=== PATIENT | female | born 1950 | race Caucasian/White ===

== ENCOUNTER → 2017-04-28 | Outpatient (CLI) | payer MEDICARE ==
[2017-04-28 11:14] LABS: Basophils % (A) 1 %; CH 32.4; CHCM 33.2; Eosinophils # (A) 0.1 k/uL (0-0.7); Eosinophils % (A) 2 %; HCT 44.3 % (34.0-46.0); HDW 2.17; HGB 15.1 gm/dL (11.4-16.0); Luc # (Auto) 0.09; Luc % (Auto) 2; Lymphocytes % (A) 32 %; MCH 33.5 pg (25.0-35.0); MCHC 34.2 g/dL (31.0-37.0); Mean Platelet Volume 9.1; Monocytes # (A) 0.3 k/uL (0-1.0); Monocytes % (A) 5 %; Neutrophils # (A) 3.7 k/uL (1.3-7.7); Neutrophils % (A) 59 %; RBC 4.52 m/uL (3.80-5.40); RDW 12.9 % (11.5-15.5); WBC 6.2 k/uL (3.8-10.6); WBC (Perox) 6.18
[2017-04-28 16:32] LABS: ANA w/Reflex to Titer NEGATIVE (NEGATIVE)
== END | disposition home or self-care (01) ==
LOC: LABWHC1 10:05
PROVIDERS: ATTEND Nurse Practitioner Family
DX: K14.6 Glossodynia (principal); G50.9 Disorder of trigeminal nerve, unspecified
CPT/HCPCS: 36415; 82306; 82607; 82746; 84165; 84425; 84443; 84630; 85025; 86038; 86235; 86334

== ENCOUNTER 2022-07-01 15:17 | Emergency (ER) | payer MEDICARE ==
[2022-07-01 15:38] VITALS: BP 135/78; PULSE 107; RESP 20; TEMP 97.8
--- NOTE | 2022-07-01 16:14 | XR ---
EXAMINATION TYPE: XR abdomen 2V DATE OF EXAM: 07/01/2022 4:02 PM INDICATION: Patient age:Female; 72 years old; Reason for study: abdominal pain/constipation; COMPARISON: None. TECHNIQUE: Two views of the abdomen were obtained. FINDINGS: The bowel gas pattern is nonspecific without dilated loops of small or large bowel. There i s no evidence for organomegaly or pneumoperitoneum. The osseous structures are intact. No abnormal calcifications are present. Fecal material and gas are demonstrated throughout the colon and rectum. Multilevel disc degeneration changes throughout the spine. IMPRESSION: Nonspecific bowel gas pattern without radiographic evidence for acute process.
== END 2022-07-01 18:21 | disposition left against medical advice (07) ==
LOC: EC 15:17
DX: Z53.21 Procedure and treatment not carried out due to patient leaving prior to being seen by health care provider (principal)
CPT/HCPCS: 74019; 99499

== ENCOUNTER 2022-07-02 09:27 | Emergency (ER) | payer MEDICARE ==
[2022-07-02 09:46] VITALS: RESP 18; TEMP 97.7
[2022-07-02] MEDS ORDERED: HYDROcodone/APAP 10-325MG 1 EACH TAB PO ONE (12:23)
--- NOTE | 2022-07-02 12:59 | ED ---
General Adult HPI - General Chief complaint: Back Pain/Injury Stated complaint: Abd & back pain Time Seen by Provider: 07/02/22 10:57 Source: patient, RN notes reviewed Mode of arrival: ambulatory Limitations: no limitations - History of Present Illness Initial comments: 72-year-old female presents to the emergency department for evaluation of ongoing back pain 5-6 weeks. Patient states she thinks this discomfort is associated with an episode in which she bent over to reach first an object off the floor discomfort upon straightening. States she has been on Courtenay and has had some relief of discomfort. Reports she also is dealing with constipation and is concerned about a bowel obstruction. Reports loose stool as she has been taking laxative and fiber supplements. No nausea or vomiting. Reports decreased appetite. Denies any foot drop, saddle anesthesia, radicular symptoms, abdominal pain, urinary discomfort, or loss of bowel or bladder control. - Related Data Home Medications Medication Instructions Recorded Confirmed Gabapentin 300 mg PO TID 07/02/22 07/02/22 Zolpidem [Ambien] 10 mg PO HS PRN 07/02/22 07/02/22 Allergies Allergy/AdvReac Type Severity Reaction Status Date / Time erythromycin base Allergy Rash/Hives Verified 07/02/22 12:34 [Erythromycin Base] Penicillins Allergy Rash/Hives Verified 07/02/22 12:34 Review of Systems ROS Statement: Those systems with pertinent positive or pertinent negative responses have been documented in the HPI. ROS Other: All systems not noted in ROS Statement are negative. Past Medical History Past Medical History: Cancer, COPD, GERD/Reflux, Osteoarthritis (OA) Additional Past Medical History / Comment(s): hx cervical cancer, bulging disc in neck, chronic low back & left hip pain History of Any Multi-Drug Resistant Organisms: None Reported Past Surgical History: Hysterectomy Additional Past Surgical History / Comment(s): excision lesion in vaginal area Past Anesthesia/Blood Transfusion Reactions: No Reported Reaction Past Psychological History: Anxiety Smoking Status: Current every day smoker Past Alcohol Use History: Occasional Past Drug Use History: None Reported General Exam Limitations: no limitations (Well-developed, poorly nourished female in no acute distress. Initial temperature 97.7, pulse 94, respirations 18, blood pressure 146/83, pulse ox 97% on room air.) General appearance: alert, in no apparent distress ENT exam: Present: normal oropharynx Respiratory exam: Present: normal lung sounds bilaterally. Absent: respiratory distress, wheezes, rales, rhonchi, stridor Cardiovascular Exam: Present: regular rate, normal rhythm, normal heart sounds. Absent: systolic murmur, diastolic murmur, rubs, gallop, clicks GI/Abdominal exam: Present: soft, normal bowel sounds. Absent: distended, tenderness, guarding, rebound, rigid Back exam: Present: CVA tenderness (R). Absent: CVA tenderness (L), muscle spasm, paraspinal tenderness, vertebral tenderness, rash noted Expanded Back exam: Absent: saddle anesthesia Back exam: Negative Straight Leg Raising: Left, Right Neurological exam: Present: alert, oriented X3, normal gait Psychiatric exam: Present: normal affect, normal mood Skin exam: Present: warm, dry, intact, normal color. Absent: rash Course Vital Signs 07/02/22 07/02/22 09:43 15:31 Temperature 97.7 F Pulse Rate 94 78 Respiratory 18 18 Rate Blood Pressure 146/83 144/78 O2 Sat by Pulse 97 97 Oximetry - Reevaluation(s) Reevaluation #1: 07/02/22 14:30 Upon reassessment, patient reports improvement in discomfort level. She is asked to provide an additional urine specimen as there was insufficient quantity and the previous one. Patient is well-appearing and is able to move freely. Did discuss results of KUB x-ray that was obtained yesterday. Provided there is no concerning findings and her urinalysis, she will be instructed to utilize a stool softener and to follow up with her PCP for a recheck. Medical Decision Making - Medical Decision Making This is a pleasant 72-year-old female with a past medical history of chronic back pain, COPD, and cancer who presents to the emergency Department with complaints of thoracic back discomfort and constipation. Upon exam, patient is well-appearing and in no acute distress. She is able to move freely and ambulate without difficulty. No foot drop, saddle anesthesia, or loss of bowel or bladder control. Patient was given a Courtenay for pain. This was obtained showing 3+ ketones. She is encouraged to increase hydration and add a stool softener in place of a laxative. Encouraged to follow up with her PCP for a recheck next week and to keep her scheduled follow-up appointment for additional testing. Return parameters discussed in detail. Patient verbalizes understanding and agrees with this plan. Attending: Norbert. - Lab Data Lab Results 07/02/22 Range/Units 14:20 Urine Color Yellow Urine Appearance Clear (Clear) Urine pH 6.0 (5.0-8.0) Ur Specific [place] 1.034 (1.001-1.035) Urine Protein Trace H (Negative) Urine Glucose (UA) Negative (Negative) Urine Ketones 3+ H (Negative) Urine Blood Trace H (Negative) Urine Nitrite Negative (Negative) Urine Bilirubin Negative (Negative) Urine Urobilinogen <2.0 (<2.0) mg/dL Ur Leukocyte Esterase Negative (Negative) Urine RBC 6 H (0-5) /hpf Urine WBC 1 (0-5) /hpf Ur Squamous Epith Cells 1 (0-4) /hpf Urine Bacteria Rare H (None) /hpf Hyaline Casts 3 H (0-2) /lpf Urine Mucus Few H (None) /hpf Disposition Clinical Impression: Back pain of thoracolumbar region, Constipation Disposition: HOME SELF-CARE Condition: Stable Instructions (If sedation given, give patient instructions): Constipation (ED), Back Pain (ED) Additional Instructions: Continue to take your home medications as prescribed. Add a stool softener (Colace, Docusate Sodium) daily for 3-5 days. Utilize a fiber supplement as well. Maintain mobility with frequent ambulation and gentle stretching. Follow up with DR. Castellanos as scheduled. Return to the emergency department with any new, worsening, or concerning symptoms. Is patient prescribed a controlled substance at d/c from ED?: No Referrals: Nigel Castellanos DO [Primary Care Provider] - 1-2 days Time of Disposition: 15:25
[2022-07-02 14:41] LABS: Appearance,Urine Clear (Clear); Bacteria,Urine Rare /hpf; Bilirubin,Urine Negative (Negative); Blood,Urine Trace (Negative); Color,Urine Yellow; Glucose,Urine (UA) Negative (Negative); Hyaline Casts,Urine 3 /lpf (0-2); Ketones,Urine 3+ (Negative); Leukocyte Esterase,Urine Negative (Negative); Mucus,Urine Few /hpf; Nitrite,Urine Negative (Negative); Protein,Urine Trace (Negative); RBC,Urine 6 /hpf (0-5); Specific Gravity,Urine 1.034 (1.001-1.035); Squamous Epithelial Cell,Urine 1 /hpf (0-4); Urobilinogen,Urine <2.0 mg/dL (<2.0); WBC,Urine 1 /hpf (0-5)
[2022-07-02 15:32] VITALS: BP 144/78; PULSE 78
== END 2022-07-02 15:33 | disposition home or self-care (01) ==
LOC: EC 09:27
DX: M54.6 Pain in thoracic spine (principal); M54.50 Low back pain, unspecified; K59.00 Constipation, unspecified; J44.9 Chronic obstructive pulmonary disease, unspecified; M19.90 Unspecified osteoarthritis, unspecified site; F17.200 Nicotine dependence, unspecified, uncomplicated; Z88.1 Allergy status to other antibiotic agents; Z88.0 Allergy status to penicillin
CPT/HCPCS: 81001; 99283

== ENCOUNTER → 2022-07-30 | Outpatient (CLI) | payer MEDICARE ==
--- NOTE | 2022-07-30 17:30 | NM ---
EXAMINATION TYPE: NM bone/joint limited DATE OF EXAM: 07/30/2022 COMPARISON: NONE HISTORY: 72-year-old female R07.81, heterogeneous. Pain along the posterior ribs for 3 months. TECHNIQUE: After the intravenous administration of 22.6 mCi Tc 99m MDP. Images acquired 3 hours pos t injection. Multiple views the chest and abdomen are submitted. FINDINGS: There is a band of increased tracer activity that seems to localize to the T12 vertebral body. Additi onal increased activity proximal aspect of the right 11th rib. IMPRESSION: Correlate for compression fracture of T12. Suspected injury to the proximal aspect of the right 11th rib as well. Consider MRI or CT to further evaluate.
== END | disposition home or self-care (01) ==
LOC: RADNMMAIN 11:00
PROVIDERS: ATTEND Family Medicine
DX: R07.81 Pleurodynia (principal)
CPT/HCPCS: 78300; A9503

== ENCOUNTER → 2022-08-17 | Outpatient (CLI) | payer MEDICARE ==
--- NOTE | 2022-08-18 06:48 | MR ---
EXAMINATION TYPE: MR thoracic spine wo con DATE OF EXAM: 08/17/2022 COMPARISON: Nuclear medicine bone scan July 30, 2022 HISTORY: Mid back pain, compression fracture TECHNIQUE: Multiplanar, multisequence imaging of thoracic spine is performed without contrast FINDINGS: Spinal cord shows normal course, caliber, and signal as it courses the thoracic spine. Mode rate to severe compression type fracture at T12 level is redemonstrated with slight increase T2 signa l on STIR weighted images correlating to the site of concern on bone scan. There is slight posterior retropulsion into the anterior spinal canal up to ventral surface of spinal cord along superior aspe ct of vertebra up to 3 mm sagittal image 8. The disc space heights are maintained. Bone marrow signal intensity is preserved. No large disc herniations are seen. Review of the axial images confirms bony retropulsion along the superior T12 vertebra axial image 8 s eries 701 up to ventral surface of spinal cord. No suspicious edema. Remainder of the thorax and vis ualized upper abdomen show no suspicious abnormality. IMPRESSION: Moderate to severe acute/subacute compression type fracture at T12 level with some filling and packing supervisor ior retropulsion along the superior aspect is noted as detailed above.
== END | disposition home or self-care (01) ==
LOC: RADMRIMAIN 16:28
PROVIDERS: ATTEND Family Medicine
DX: S22.080A Wedge compression fracture of T11-T12 vertebra, initial encounter for closed fracture (principal)
CPT/HCPCS: 72146

== ENCOUNTER → 2022-09-13 | Outpatient (CLI) | payer MEDICARE | END | disposition home or self-care (01) | LOC: RADNMMAIN 10:11 | PROVIDERS: ATTEND Family Medicine | DX: Z53.9 Procedure and treatment not carried out, unspecified reason (principal) ==

== ENCOUNTER 2022-10-06 13:20 | Day surgery (SDC) | payer MEDICARE ==
[~2022-10-06 13:20] MED LIST: DEXAMETHASONE SOD PHOSPHATE 4 MG/ML 1 ML VIAL IV ONE; HYDROmorphone 0.5 MG/0.5 ML SYRINGE IVP PRN; LACTATED RINGERS 1,000 ML IV SCH; ONDANSETRON 4 MG/2 ML VIAL IVP ONE; ceFAZolin 1,000 MG in SODIUM CHLORIDE 0.9% IRRIGATIO 1,000 ML IRRIGATION PRN
[2022-10-06] MEDS ORDERED: WATER FOR INJECTION, STERILE 10 ML VIAL IV ONE (16:10)
[2022-10-06] MEDS ORDERED: fentaNYL (PF) 50 MCG/ML 2 ML AMP ONE (16:10)
[2022-10-06] MEDS ORDERED: PROPOFOL 10 MG/ML 20 ML VIAL IV ONE ×2 (16:10)
[2022-10-06] MEDS ORDERED: LIDOCAINE 2% INJ 20 MG/ML (2 ML VIAL) ONE (16:10)
[2022-10-06] MEDS ORDERED: MIDAZOLAM 2 MG/2 ML VIAL ONE (16:10)
[2022-10-06] MEDS ORDERED: SUCCINYLCHOLINE CHLORIDE 200 MG/10 ML VIAL IV ONE (16:10)
[2022-10-06] MEDS ORDERED: BUPIVACAIN-EPI 0.5%-1:200,000 30 ML VIAL SQ ONE (16:35)
[2022-10-06] MEDS ORDERED: IOPAMIDOL M200 10 ML VIAL MISCELLANE ONE (16:35)
[2022-10-06] MEDS ORDERED: LACTATED RINGERS 1,000 ML IV ONE (16:47)
[2022-10-06] MEDS ORDERED: HYDROcodone/APAP 10-325MG 1 EACH TAB PO PRN (17:26)
[2022-10-06] MEDS ORDERED: ONDANSETRON 4 MG/2 ML VIAL IVP PRN (17:26)
[2022-10-06] MEDS ORDERED: HYDROmorphone 0.5 MG/0.5 ML SYRINGE IVP PRN (17:26)
[2022-10-06] MEDS ORDERED: MAGNESIUM HYDROXIDE 2,400 MG/10 ML CUP PO PRN (17:26)
[2022-10-06] MEDS ORDERED: BENZOCAINE/MENTHOL LOZENG 1 EACH LOZENGE MUCOUS MEM PRN (17:26)
[2022-10-06] MEDS ORDERED: CYCLOBENZAPRINE 5 MG TAB PO PRN (17:26)
[2022-10-06 17:28] VITALS: TEMP 96.8
[2022-10-06] MEDS ORDERED: SODIUM CHLORIDE 0.9% 1,000 ML IV SCH (17:30)
--- NOTE | 2022-10-06 17:33 | P.OP ---
Date of Procedure: 10/06/22 Preoperative Diagnosis: T12 vertebral compression fracture, osteoporotic Thoracolumbar back pain due to fracture Failed conservative management Postoperative Diagnosis: Same Anesthesia: GETA Pathology: other (T12 vertebral body biopsy sent to pathology) Condition: stable Description of Procedure: BRIEF OPERATIVE NOTE Preoperative Diagnosis: T12 vertebral compression fracture, osteoporotic Thoracolumbar back pain due to fracture Failed conservative management Postoperative Diagnosis: Same Procedure: Kyphoplasty of T12 Vertebral body biopsy of T12 Use of biplanar fluoroscopic guidance Surgeon: Dr. Beltre Sewing Pattern Layout Technician: assistant professor Anesthesia: General anesthesia per Dr. Bolivar Estimated blood loss: Less than 10 mL Specimen: Vertebral body biopsy sent to pathology in formalin Complications: None apparent Components implanted: Bone cement approximately 3 mL Disposition: To recovery room in good stable condition. OPERATIVE INDICATIONS The patient has been having issues in their back for the past several months but she noticed an acute flareup of pain over the past couple of months. She does not have any specific injury but imaging showed new compression deformity at level of T12. She did not have any specific trauma. She denied any lower extremity numbness tingling or weakness. She said she had pain in her back which was primarily at her lower back but this pain was different for her anymore sharp at the middle of her back. This correlated with her compression deformity at T12 as did her exam.. The patient has been through conservative treatment. They attempted conservative care with bracing however they're not having any benefit despite brace use. They continue to have significant pain and debility due to their fracture. We discussed various treatment options including surgery, and the patient wishes to proceed with surgery We discussed the risk, patient's alternatives and benefits of surgery including but not limited to, risk of bleeding risk of infection, risk of need for further surgery, risk of decreased, loss of motion, loss of function, cement extravasation, nerve damage, paralysis, heart attack, blindness and . OPERATIVE SUMMARY After discussing all the risks, patient alternatives and benefits at length, the patient elected to proceed with surgical intervention, signed informed consent, and presented for their procedure. The patient was seen and examined in the preoperative holding area and the surgical site was marked. The patient was given antibiotics and brought to the operating room. The patient was sedated and intubated by anesthesia in standard fashion. The patient was positioned on to the operating room table in a prone position on the appropriate well-padded and well molded bilateral chest rolls. We were careful to pad any bony prominences and pressure points. We were careful to maintain the patient's cervical spine and good neutral alignment and position throughout. We used 2 C-arm machines to establish biplanar fluoroscopic guidance in AP and lateral positions. We were able to localize the fractures appropriately. The patient was prepped and draped in a normal standard fashion. An appropriate timeout and keystone protocol performed. We were able to proceed with the surgery. The local wound area was infiltrated with local anesthetic. An incision was made over the lateral aspect of the pedicle over the appropriate levels with a small 2 mm stab incision at the level of T12 on the right. Intraoperative fluoroscopy was taken which showed a marker at the appropriate level. With the appropriate level positively confirmed, at T12 I was able to position a sharp trocar over the lateral aspect of the pedicle. As able to advance the trocar into the pedicle and into the posterior aspect of vertebral body being careful to avoid penetration cephalad caudad or medially. The trocar was placed appropriately into the posterior aspect of vertebral body at the appropriate levels. This was confirmed with C-arm guidance. With the trocar intact I was then able to take a bone biopsy with a biopsy punch or a bony drill. The biopsy specimen was passed off to be sent to pathology in formalin. I was then able to place the kyphoplasty balloon within the vertebral body. The position was checked on C-arm. I was able to inflate the balloon under low pressure and visualization with C-arm. The balloon was well enclosed within the vertebral body. The cement was prepared. With the cement at appropriate working condition the balloons were deflated and removed. I was able to place bony cement with trocar with the cement delivery device under low pressure. Some of the cement showed some extravasation at the inferior endplate into the T12-L1 disc space. I was able to plug that space with heart and cement and continue filling the rest of the vertebral body. It had good fill within the vertebral body. There is no evidence of any extravasation of the cement posteriorly toward the canal. The cement was well contained at the appropriate levels of T12. The cement was allowed to cure appropriately. The trochars removed and final images were taken on C-arm. This showed the cement at the appropriate levels. We were able to proceed with closure. The wound was cleaned and dried and dressed with the appropriate dressing. The drapes were broken down. The patient was gently rolled back onto their hospital bed being careful to maintain their cervical spine and good neutral alignment and position. They were woken up by anesthesia, extubated, and brought to the recovery room in good stable condition. The patient will be admitted to the hospital for observation and for appropriate postoperative care, medical management and monitoring. We will continue to follow them closely about the postoperative course.
[2022-10-06 17:55] VITALS: RESP 20
[2022-10-06] MEDS ORDERED: HYDROcodone/APAP 10-325MG 1 EACH TAB PO ONE (17:58)
--- NOTE | 2022-10-06 18:04 | FL ---
Intraoperative/procedural fluoroscopic services were provided. Total fluoroscopy time is 34 seconds w ith a total of 4 submitted images to PACS. Please see the operative/procedural note for further detai ls.
[2022-10-06 18:21] VITALS: BP 113/65; PULSE 100
== END 2022-10-06 18:37 | disposition home or self-care (01) ==
LOC: OR 13:20
PROVIDERS: ATTEND Orthopaedic Surgery Orthopaedic Surgery of the Spine
DX: M80.08XA Age-related osteoporosis with current pathological fracture, vertebra(e), initial encounter for fracture (principal); J44.9 Chronic obstructive pulmonary disease, unspecified; F17.210 Nicotine dependence, cigarettes, uncomplicated; F41.9 Anxiety disorder, unspecified; M47.814 Spondylosis without myelopathy or radiculopathy, thoracic region; M19.90 Unspecified osteoarthritis, unspecified site; Z88.0 Allergy status to penicillin; Z88.1 Allergy status to other antibiotic agents; Z98.890 Other specified postprocedural states; Z79.1 Long term (current) use of non-steroidal anti-inflammatories (NSAID); Z79.899 Other long term (current) drug therapy; Z79.891 Long term (current) use of opiate analgesic; F10.20 Alcohol dependence, uncomplicated
CPT/HCPCS: 22513; 88307; 88311; 72080; C1713; J2250; J0330; J1100; J2405; J0690; J3010; J2704; Q9966; J2001

== ENCOUNTER → 2023-01-06 | Outpatient (CLI) | payer MEDICARE ==
--- NOTE | 2023-01-06 14:19 | CTL ---
EXAMINATION TYPE: CT Low Dose Lung DATE OF EXAM ORDERED: 01/06/2023 HISTORY: Tobacco use nicotine dependence. Lung cancer screening CT DLP: 21.[address] CTDI: 0.60 mGy Automated exposure control for dose reduction was used. SCREENING VISIT: Initial COMPARISON: None TECHNIQUE: Low dose computed tomography scan was performed through the chest at 1 mm thick sections a nd reconstructed images in the coronal plane at [address] DIAGNOSTIC QUALITY: Satisfactory FINDINGS: LUNG NODULES: None. LUNGS: COPD: Severity: None Fibrosis: Severity: None Lymph nodes: None Other findings: None RIGHT PLEURAL SPACE: Effusion: None Calcification: None Thickening: None Pneumothorax: None LEFT PLEURAL SPACE: Effusion: None Calcification: None Thickening: None Pneumothorax: None HEART: Heart Size: Normal Coronary calcification: Mild Pericardial effusion: None OTHER FINDINGS: Upper abdomen: Normal Bony thorax: Normal Supraclavicular region: Normal Other: Ascending thoracic aorta at the level the main pulmonary artery measures 3.1 cm. The main pul monary artery at the bifurcation measures 2.3 cm. IMPRESSION: 1. No suspicious changes suggest primary or metastatic neoplasm. FOLLOW UP CT CHEST RECOMMENDATION: Low-dose CT chest [address] LUNG RAD: Lung-Rad 1 Negative
== END | disposition home or self-care (01) ==
LOC: RADCTMAIN 11:14
PROVIDERS: ATTEND Family Medicine
DX: Z12.2 Encounter for screening for malignant neoplasm of respiratory organs (principal); F17.210 Nicotine dependence, cigarettes, uncomplicated
CPT/HCPCS: 71271

== ENCOUNTER → 2023-03-04 | Outpatient (CLI) | payer MEDICARE ==
[2023-03-04 11:56] LABS: African American GFR (CKD) >90 (>60 ml/min/1.73 sqM); Blood Urea Nitrogen 20 mg/dL (7-17); Non-African American GFR(CKD) >90 (>60 ml/min/1.73 sqM)
--- NOTE | 2023-03-07 19:00 | CT ---
EXAMINATION TYPE: CT ChestAbdPelvis w con DATE OF EXAM: 03/04/2023 COMPARISON: Abdomen and pelvis 05/14/2010 and chest region 3023 HISTORY: 72-year-old female R63.4, abnormal weight loss, history of cervical CA TECHNIQUE: Contiguous axial scanning of the chest, abdomen, and pelvis performed with IV Contrast, pa tient injected with 100 mL of Isovue 300. Delayed images through the kidneys were obtained. Coronal/s agittal reconstructions performed. CT DLP: 655 mGycm Automated exposure control for dose reduction was used. FINDINGS: CHEST: Heart is normal size without pericardial effusion. Aorta normal caliber with minimal atherosclerotic arch calcifications and conventional arch vessel br anching anatomy. No thoracic lymphadenopathy by CT size criteria. Minimal biapical pleural-parenchymal scarring. There appears to be mild underlying emphysematous banks ge. No consolidation or pleural effusion. ABDOMEN: Suspect some 1.7 cm focal fat along the anterior falciform ligament, unchanged from 2010. Otherwise, no focal liver lesion. Portal venous system is patent. Bile duct mildly distended but with normal dis kaleb tapering. Upper bile duct measures 8 mm in diameter, possibly chronic for the patient. This can b e correlated with alkaline phosphatase and bilirubin levels. Gallbladder, adrenal glands, kidneys, spleen, and pancreas within normal limits. Possible moderate or severe focal atherosclerotic stenosis proximal SMA. Moderate atherosclerotic calcifications infrarenal abdominal aorta and iliac arteries. No dilated small bowel, free fluid, or free air. A couple prominent gastrohepatic ligament lymph nodes measuring up to 6 mm remain unchanged from 2010 . Otherwise, no obvious mesenteric or retroperitoneal lymphadenopathy seen. Moderate overall stool burden. Mild circumferential wall thickening mid to distal sigmoid, for exampl e, axial image 85 through 88 may be due to nondistention. No pericolonic inflammatory change seen. PELVIS: Bladder partially distended. Pelvic phleboliths. Uterus surgically absent. There appears to be a 2.3 cm cyst of the right ovary versus 1.2 cm back in 2010. Ongoing surveillance follow-up is recommended. Otherwise, no abnormal fluid collection in the pelvis or pelvic lymphadenopathy seen. BONES: There is a vertebral compression deformity with prior vertebroplasty T12. Accentuated kyphosis at thi s level. Otherwise, no osseous destructive process seen. IMPRESSION: 1. BILE DUCT MILDLY DILATED AT 8 MM THOUGH WITH NORMAL DISTAL TAPERING. PROBABLY NORMAL, AGE-RELATED CHANGE FOR THE PATIENT. CORRELATE WITH ALKALINE PHOSPHATASE AND BILIRUBIN LEVELS. 2. COPD WITH MILD EMPHYSEMA. 3. MODERATE ATHEROSCLEROTIC CALCIFICATIONS ABDOMINAL AORTA AND ILIAC ARTERIES. POSSIBLE MODERATE TO S EVERE STENOSIS INVOLVING THE ORIGIN OF THE SMA. 4. MILD CIRCUMFERENTIAL WALL THICKENING MID TO DISTAL SIGMOID COLON MAY BE DUE TO NONDISTENTION OR NO NSPECIFIC MILD COLITIS. 5. STATUS POST HYSTERECTOMY. A 2.3 CM CYST OF THE RIGHT OVARY, ABNORMAL IN A POSTMENOPAUSAL FEMALE. T HIS APPEAR TO MEASURE 1.2 CM BACK IN 2010. ONGOING ANNUAL SURVEILLANCE FOLLOW-UP IS RECOMMENDED WITH ULTRASOUND. 6. PREVIOUS T12 VERTEBROPLASTY CHANGE.
== END | disposition home or self-care (01) ==
LOC: RADCTMAIN 11:16
PROVIDERS: ATTEND Internal Medicine Hematology & Oncology
DX: J43.9 Emphysema, unspecified (principal); K83.8 Other specified diseases of biliary tract; I25.10 Atherosclerotic heart disease of native coronary artery without angina pectoris; N83.201 Unspecified ovarian cyst, right side; K63.89 Other specified diseases of intestine; R63.4 Abnormal weight loss; Z98.890 Other specified postprocedural states
CPT/HCPCS: 82565; 84520; 71260; 74177; 36415; Q9967